=== PATIENT | female | born 1955 | race Caucasian/White ===

== ENCOUNTER → 2017-11-07 08:36 | Outpatient (CLI) | payer OTHER, SELFPAY ==
--- NOTE | 2017-11-07 08:41 | DI.MG.S_ITS ---
BILATERAL DIGITAL SCREENING MAMMOGRAM 3D/2D WITH CAD: 11/07/2017 CLINICAL: Baseline exam. Routine screening. No prior exams were available for comparison. There are scattered fibroglandular elements in both breasts. Current study was also evaluated with a Computer Aided Detection (CAD) system. There is a focal asymmetry with calcifications in the left breast upper outer aspect middle depth. There is possible architectural distortion associated with the focal asymmetry on tomosynthesis images. There also is an asymmetry in the left breast middle depth inner region seen on the craniocaudal view only. No other significant masses, calcifications, or other findings are seen in either breast. IMPRESSION: INCOMPLETE: NEEDS ADDITIONAL IMAGING EVALUATION The focal asymmetry in the left breast upper outer aspect middle depth is indeterminate. Additional views with possible ultrasound are recommended. The asymmetry in the left breast middle depth inner region seen on the craniocaudal view only is indeterminate. Additional views with possible ultrasound are recommended. This exam was interpreted at Station ID: [id number]. NOTE: For mammograms, a report in lay terms will be sent to the patient. Approximately 15% of breast malignancies will not be visualized mammographically. In the management of a palpable breast mass, a negative mammogram must not discourage biopsy of a clinically suspicious lesion. Electronically Signed By: Samir Ramires M.D. ecl/:11/07/2017 10:51:45 letter sent: Additional Imaging Needed ACR BI-RADS Category 0: Incomplete 3340F
== END ==
PROVIDERS: Visit Provider Nurse Practitioner Family
DX: Z12.31 Encounter for screening mammogram for malignant neoplasm of breast (principal)
CPT/HCPCS: 77063; 77067

== ENCOUNTER → 2017-12-05 14:02 | Outpatient (CLI) | payer OTHER, SELFPAY ==
--- NOTE | 2017-12-05 | DI.MG.S_ITS ---
UNILATERAL LEFT DIGITAL DIAGNOSTIC MAMMOGRAM 3D/2D WITH ADDITIONAL VIEWS: 12/05/2017 CLINICAL: Additional evaluation requested from prior study. Comparison is made to exam dated: 11/07/2017 mammogram - [facility]. There are scattered fibroglandular elements in the left breast. There is a 1.1 cm x 1 cm x 1.4 cm oval mass with an indistinct margin and calcifications in the left breast upper outer aspect middle depth. No other significant masses or calcifications are seen in the breast. There are mole markers overlying the left breast. IMPRESSION: INCOMPLETE: NEEDS ADDITIONAL IMAGING EVALUATION The 1.1 cm x 1 cm x 1.4 cm oval mass in the left breast is indeterminate. An ultrasound is recommended. This exam was interpreted at Station ID: [id number]. NOTE: For mammograms, a report in lay terms will be sent to the patient. Approximately 15% of breast malignancies will not be visualized mammographically. In the management of a palpable breast mass, a negative mammogram must not discourage biopsy of a clinically suspicious lesion. Electronically Signed By: Samir Ramires M.D. ecl/:12/06/2017 04:45:08 letter sent: Additional Imaging Needed ACR BI-RADS Category 0: Incomplete 3340F
--- NOTE | 2017-12-05 | DI.US.S_ITS ---
ULTRASOUND OF LEFT BREAST: 12/05/2017 CLINICAL: Patient returns for additional imaging over a suspected mass in the left breast. Comparison is made to exams dated: 12/05/2017 mammogram and 11/07/2017 mammogram - [facility]. Real-time and Doppler ultrasound of the left breast were performed. Rosario scale images of the real-time examination were reviewed. There is a 1.3 cm x 0.9 cm x 1.1 cm oval mass with an indistinct margin in the left breast at 1 o'clock middle depth 4 cm from the nipple. This oval mass is hypoechoic. Color flow imaging demonstrates that there is no vascularity present. This correlates with the finding seen on mammography. Left axillary ultrasound demonstrates an abnormal 1.4 cm left axillary lymph node with focal cortical thickening up to 5 mm. IMPRESSION: SUSPICIOUS OF MALIGNANCY - FOLLOW-UP RECOMMENDED 1) The 1.3 cm x 0.9 cm x 1.1 cm oval mass in the left breast is at a low suspicion for malignancy. An ultrasound guided biopsy is recommended. 2) Abnormal 1.4 cm left axillary lymph node with focal cortical thickening up to 5 mm. An ultrasound guided biopsy is recommended. These findings and recommendations were discussed with the patient at the time of the exam by [facility] Radiologist Dr. Bret Freedman in person. This exam was interpreted at Station ID: [id number]. Electronically Signed By: Samir Ramires M.D. ecl/:12/06/2017 04:49:04 letter sent: Biopsy Required Ultrasound BI-RADS: 4a Suspicious abnormality - low suspicion for malignancy
== END ==
PROVIDERS: Visit Provider Nurse Practitioner Family
DX: R92.8 Other abnormal and inconclusive findings on diagnostic imaging of breast (principal); N63.21 Unspecified lump in the left breast, upper outer quadrant; R59.0 Localized enlarged lymph nodes
CPT/HCPCS: 76642; 77065; G0279

== ENCOUNTER → 2018-01-02 12:37 | Outpatient (CLI) | payer OTHER, SELFPAY ==
--- NOTE | 2018-01-02 | DI.US.S_ITS ---
ULTRASOUND OF LEFT BREAST AND AXILLA: 01/02/2018 CLINICAL: Patient returns for additional imaging over a suspected mass in the left breast. BIOPSY CANCELLED PATIENT TO RETURN FOR 6 MONTH FOLLOW UP ULTASOUND. Comparison is made to exams dated: 12/05/2017 ultrasound, 12/05/2017 mammogram, and 11/07/2017 mammogram - [facility]. Color flow and real-time ultrasound of the left breast axilla were performed on the areas of interest. Rosario scale images of the real-time examination were reviewed. There is a possible 8 mm x 7 mm x 6 mm irregular area of fibroglandular tissue with an indistinct margin in the left breast at 2 o'clock middle depth 4 cm from the nipple. This irregular area of fibroglandular tissue is hypoechoic. This abnormality is decreased in size and less prominent since the prior study. Color flow imaging demonstrates that there is no vascularity present. No abnormalities were seen sonographically in the left axilla. A previous enlarged lymph node is now normal in size. IMPRESSION: PROBABLY BENIGN The possible 8 mm x 7 mm x 6 mm irregular area of fibroglandular tissue in the left breast is probably benign. A planned biopsy was cancelled. A follow-up ultrasound in 6 months is recommended. Originally a follow-up ultrasound in 3 months was recommended however the patient will not be able to [place]frame [place] A 6 month followup, given the decreasing size and less conspicuous appearance in the last month, is reasonable. I personally discussed this with the patient at the time of exam and she understands the importance of a follow up examination in 6 months. This exam was interpreted at Station ID: [id number]. Electronically Signed By: Mark loyola/:01/02/2018 16:26:51 letter sent: Followup Recommended Ultrasound BI-RADS: 3 Probably benign
== END ==
PROVIDERS: Visit Provider Nurse Practitioner Family
DX: N63.20 Unspecified lump in the left breast, unspecified quadrant (principal)
CPT/HCPCS: 76642

== ENCOUNTER → 2018-07-03 10:12 | Outpatient (CLI) | payer OTHER, SELFPAY ==
--- NOTE | 2018-07-03 | DI.US.S_ITS ---
ULTRASOUND OF LEFT BREAST AND AXILLA: 07/03/2018 CLINICAL: 6 month follow-up of complicated cyst. Comparison is made to exams dated: 01/02/2018 ultrasound, 12/05/2017 ultrasound, 12/05/2017 mammogram, and 11/07/2017 mammogram - [facility]. Color flow and real-time ultrasound of the left breast and axilla were performed. Rosario scale images of the real-time examination were reviewed. There is 1.8 cm x 0.8 cm x 0.5 cm irregular mass with an angular margin in the left breast at 1 o'clock middle depth 4 cm from the nipple. This irregular mass is hypoechoic. This abnormality has increased in size with increased solid appearance, and represents a change. Color flow imaging demonstrates that there is an adjacent vascularity. No abnormalities were seen sonographically in the left axilla. IMPRESSION: SUSPICIOUS OF MALIGNANCY The 1.8 cm x 0.8 cm x 0.5 cm irregular mass in the left breast is suspicious of malignancy. An ultrasound guided biopsy is recommended. Findings and recommendations were discussed with the patient by Dr. Guerra. This exam was interpreted at Station ID: [id number]. Electronically Signed By: Noe Centeno M.D. aty/:07/03/2018 11:09:26 letter sent: Biopsy Required Ultrasound BI-RADS: 4 Suspicious abnormality
== END ==
PROVIDERS: Visit Provider Nurse Practitioner Family
DX: R92.8 Other abnormal and inconclusive findings on diagnostic imaging of breast (principal); N63.21 Unspecified lump in the left breast, upper outer quadrant
CPT/HCPCS: 76642

== ENCOUNTER → 2018-07-10 09:03 | Outpatient (CLI) | payer OTHER, SELFPAY ==
--- NOTE | 2018-07-10 | DI.US.S_ITS ---
ULTRASOUND GUIDED BIOPSY LEFT BREAST USING VACUUM DEVICE WITH MARKING DEVICE INSERTED AND POST MAMMOGRAPHIC IMAGIN07/10/2018 CLINICAL: Left breast mass. PATIENT CONSENT: Risks (minor bleeding, infection, vasovagal reaction and repeat procedure), benefits and alternatives were explained to the patient and written informed consent was obtained. Correlation is made to exams dated: 07/03/2018 ultrasound, 01/02/2018 ultrasound, 12/05/2017 ultrasound, 12/05/2017 mammogram, and 11/07/2017 mammogram - [facility]. An ultrasound guided biopsy using real-time ultrasound was performed for the concerning 0.5 cm x 1.2 cm x 7 cm circumscribed oval mass located in the left breast at 1 o'clock middle depth. This was described on the previous ultrasound report. The skin was prepped in the usual manner. Local anesthetic was administered to the access site. A skin pat was made in the breast. The abnormality was approached from the lateral aspect. A 13 gauge biopsy needle was placed adjacent to the abnormality under ultrasound guidance. Once the needle was documented to be in the correct location, four specimens were obtained using the Mammotome biopsy system. The patient received additional local anesthetic during the procedure. A Vision marker clip was inserted into the biopsy cavity. A skin closure strip and a sterile dressing were applied to the access site. Post procedure mammographic imaging demonstrates the location device at the targeted area and partial removal of the abnormality. The specimens were sent to the laboratory for pathological analysis. IMPRESSION: ULTRASOUND GUIDED BIOPSY BENIGN Ultrasound guided biopsy of the 0.5 cm x 1.2 cm x 7 cm mass in the left breast at 1 o'clock middle depth was successful. Pathology indicates benign sclerosing adenosis (SA) with micro-calcifications and no atypia present. Pathology results are concordant with imaging findings. Return to annual mammogram screening schedule is recommended. This exam was interpreted at Station ID: [id number]. Enrique Centeno M.D. [facility],aty/:07/16/2018 19:00:40
--- NOTE | 2018-07-10 | PATH_ITS ---
[facility] Accession Number: [id number] . 01 Material submitted: . breast - LEFT BREAST MASS . 01 Clinical history: . A: LEFT BREAST MASS 1:00 4CM FN . 02 Diagnosis: Needle Core Biopsies, Left Breast, 1 o'clock, 4 cm from the Nipple: Benign breast tissue with microcalcifications present within breast stroma, benign lobules, and areas of sclerosing adenosis. Negative for malignancy and significant atypia. MRV/07/11/2018 . 02 Electronically signed: . Clay Escamilla MD, Pathologist NPI- [id number] . 01 Gross description: . Received one formalin-filled container labeled with the patient's name and designated left breast mass 1 o'clock 4 cm FN. The specimen is received with a plastic filter, sample loose in container and consists of four 0.3 cm in diameter, yellow, cylindrical-shaped portions of tissue which range in length from 0.8 cm to 1.8 cm. The specimen is filtered and entirely submitted in one cassette. Collection date: 07/10/2018. Collection time per container: 9:51. Total fixation time: 12 hours, up to 24. (DC:[id number]) /FRR . 02 Pathologist provided ICD-10: N60.82 . 02 CPT . 368087 Performed at: 01 [facility] [address] [id number] MD Jayy Aguayo MD Phone: [phone] Performed at: 02 [facility] [address] [place], [place] [id number] MD Rukhsana Henry MD Phone: [phone]
--- NOTE | 2018-07-10 | DI.MG.S_ITS ---
UNILATERAL LEFT DIGITAL DIAGNOSTIC MAMMOGRAM: 07/10/2018 CLINICAL: Post left breast ultrasound biopsy clip placement imaging. Comparison is made to exams dated: 12/05/2017 mammogram and 11/07/2017 mammogram - [facility]. There are scattered fibroglandular elements in left breast. There is a marker clip in the appropriate position in the left breast at 1 o'clock middle depth. This correlates with the biopsy performed under US guidance earlier today. IMPRESSION: POST PROCEDURE MAMMOGRAM FOR MARKER PLACEMENT There was a successful marker clip placement in the left breast middle depth. This exam was interpreted at Station ID: [id number]. NOTE: For mammograms, a report in lay terms will be sent to the patient. Approximately 15% of breast malignancies will not be visualized mammographically. In the management of a palpable breast mass, a negative mammogram must not discourage biopsy of a clinically suspicious lesion. Electronically Signed By: Enrique Guerra M.D. sdh/:07/12/2018 10:59:24 ACR BI-RADS Category Post-procedure mammogram for marker placement
== END ==
PROVIDERS: Visit Provider Nurse Practitioner Family
DX: N60.22 Fibroadenosis of left breast (principal)
CPT/HCPCS: 19083; 77065

== ENCOUNTER → 2020-08-04 10:43 | Outpatient (CLI) | payer OTHER, SELFPAY ==
--- NOTE | 2020-08-04 | DI.MG.S_ITS ---
BILATERAL DIGITAL SCREENING MAMMOGRAM 3D/2D WITH CAD: 08/04/2020 CLINICAL: Routine screening. Comparison is made to exams dated: 12/05/2017 mammogram, 07/10/2018 mammogram, and 11/07/2017 mammogram - [facility]. There are scattered fibroglandular elements in both breasts. Current study was also evaluated with a Computer Aided Detection (CAD) system. There is a new 0.7 cm irregular focal asymmetry with an indistinct margin in the left breast central to the nipple posterior depth. No other significant masses, calcifications, or other findings are seen in either breast. IMPRESSION: INCOMPLETE: NEEDS ADDITIONAL IMAGING EVALUATION The new 0.7 cm irregular focal asymmetry in the left breast is indeterminate. Additional views with possible ultrasound are recommended. This exam was interpreted at Station ID: [id number]. NOTE: For mammograms, a report in lay terms will be sent to the patient. Approximately 15% of breast malignancies will not be visualized mammographically. In the management of a palpable breast mass, a negative mammogram must not discourage biopsy of a clinically suspicious lesion. Electronically Signed By: Israel Martin acr/:08/04/2020 14:04:22 letter sent: Additional Imaging Needed ACR BI-RADS Category 0: Incomplete 3340F
== END ==
PROVIDERS: PCP Nurse Practitioner Family; Referring Provider Nurse Practitioner Family; Visit Provider Nurse Practitioner Family
DX: Z12.31 Encounter for screening mammogram for malignant neoplasm of breast (principal)
CPT/HCPCS: 77063; 77067

== ENCOUNTER → 2020-08-17 12:33 | Outpatient (CLI) | payer OTHER, SELFPAY ==
--- NOTE | 2020-08-17 | DI.US.S_ITS ---
LIMITED ULTRASOUND OF LEFT BREAST AND AXILLA: 08/17/2020 CLINICAL: Patient returns today to evaluate a focal asymmetry in the left breast. Comparison is made to exams dated: 08/17/2020 mammogram, 08/04/2020 mammogram, 07/10/2018 ultrasound biopsy, 07/10/2018 mammogram, 07/03/2018 ultrasound, and 01/02/2018 [facility]. Color flow and real-time ultrasound of the left breast 6 o'clock, and axilla regions were performed on the areas of interest. There is a 0.7 cm x 0.5 cm x 0.5 cm oval mass with an indistinct margin in the left breast at 6 o'clock posterior depth. This oval mass is hypoechoic. This correlates with mammography findings. Color flow imaging demonstrates that there is an adjacent vascularity. No suspicious enlarged lymph nodes were seen sonographically in the left axilla. IMPRESSION: HIGHLY SUGGESTIVE OF MALIGNANCY The 0.7 cm x 0.5 cm x 0.5 cm oval mass in the left breast is highly suggestive of malignancy. An ultrasound guided biopsy is recommended. The findings were discussed with the patient at the conclusion of the study by Dr. Obrien. This exam was interpreted at Station ID: [id number]. Electronically Signed By: Jayy zamarripa/:08/17/2020 15:47:22 letter sent: Biopsy Required Ultrasound BI-RADS: 5 Highly suggestive of malignancy
--- NOTE | 2020-08-17 | DI.MG.S_ITS ---
UNILATERAL LEFT DIGITAL DIAGNOSTIC MAMMOGRAM 3D/2D WITH ADDITIONAL VIEWS: 08/17/2020 CLINICAL: Additional evaluation requested from prior study. Comparison is made to exams dated: 08/04/2020 mammogram, 07/03/2018 ultrasound, 12/05/2017 mammogram, and 11/07/2017 mammogram - [facility]. There are scattered fibroglandular elements in left breast. There is a 0.7 cm oval equal density mass with a spiculated and circumscribed margin in the left breast at 6 o'clock posterior depth. No other significant masses or calcifications are seen in the breast. IMPRESSION: INCOMPLETE: NEEDS ADDITIONAL IMAGING EVALUATION The 0.7 cm oval equal density mass in the left breast is indeterminate. An ultrasound is recommended. Ultrasound will be performed immediately following the current exam. This exam was interpreted at Station ID: [id number]. NOTE: For mammograms, a report in lay terms will be sent to the patient. Approximately 15% of breast malignancies will not be visualized mammographically. In the management of a palpable breast mass, a negative mammogram must not discourage biopsy of a clinically suspicious lesion. Electronically Signed By: Jayy Stanley M.D. ddsha/:08/17/2020 13:27:37 ACR BI-RADS Category 0: Incomplete 3340F
== END ==
PROVIDERS: PCP Nurse Practitioner Family; Referring Provider Nurse Practitioner Family; Visit Provider Nurse Practitioner Family
DX: R92.8 Other abnormal and inconclusive findings on diagnostic imaging of breast (principal); N63.24 Unspecified lump in the left breast, lower inner quadrant
CPT/HCPCS: 76642; 77065; G0279

== ENCOUNTER → 2020-08-30 09:07 | Outpatient (CLI) | payer OTHER, SELFPAY ==
--- NOTE | 2020-08-30 | PATH_ITS ---
[facility] Accession Number: [id number] . 01 Material submitted: . breast - LEFT BREAST MASS 6:00 3CM FN . 01 Clinical history: . INCONCLUSIVE FINDINGS ON DIAG IMAGING (LEFT BREAST) . 02 Diagnosis: Left Breast, Mass 6 o'clock, 3 cm FN, Core Needle Biopsies: Invasive lobular carcinoma with the following features: Size/Extent: 6 mm in greatest linear extent, involving five of multiple core fragments. Histologic grade: Glandular/tubular differentiation: Score 3. Nuclear pleomorphism: Score 2. Mitotic rate: Score 1. Overall grade: Grade 2. Ductal carcioma in situ: Not identified. Lobular carcinoma in situ: Present. Lymphovascular invasion: Not identified. Microcalcifications: Not identified. Ancillary studies: Estrogen receptor: Strongly positive, 100%. Progesterone receptor: Moderately positive, 90%. HER2 by IHC: Negative (Score 1+). Please see comment. [facility] 09/02/2020 1717 Local . 02 Comment: As part of routine air quality engineer, Dr. Scales also reviewed this case and agrees with the diagnosis. Dr. Henry gave preliminary result of invasive mammary carcinoma to Pretty in Dr. Anthony's office on 09/01/2020. . 02 Electronically signed: . Rukhsana Henry MD, Pathologist NPI- [id number] . 01 Gross description: . Received one formalin-filled container, labeled with the patient's name and designated left breast mass 6 o'clock 3 cm FN. The specimen is received with a plastic filter in container, sample loose in container and consists of multiple yellow-cade portions of tissue which range in size from less than 0.1 cm to 1.1 x 0.3 x 0.3 cm. The specimen is filtered and entirely submitted in one cassette. Possible collection date and time: 08/30/20 at 10:21. Total fixation time: Approximately 14 hours. (DC:cmc88 [id number]) /OTIS 08/31/2020 0220 Local . 02 Microscopic: . Immunohistochemical stains were performed to characterize cells of interest. All control stains showed appropriate reactivity. . RESULTS: E-cadherin: Negative. Estrogen receptor (SP1): Strongly positive, 100% of cells. Progesterone receptor (1E2): Moderately positive, 90% of cells. HER2 (4B5): Negative (score 1+). . Cold ischemia and fixation times: Meets requirements in the latest version of the ASCO/CAP guidelines. Testing performed on Block Number: A1. . TECHNICAL NOTE: The scoring criteria for breast biomarkers by immunohistochemistry is based on the current ASCO/CAP guidelines (Emy et al, Arch Pathol Lab Med 2010: 134(6): 907-922 / Ramón Dugan al, Arch Pathol Lab Med 2014: 138(2):241-256). Deparaffinized sections of formalin fixed tissue (along with appropriate positive controls) are incubated with the above antibody(s). Using the automated Quinter stainer, tissue is incubated with the designated antibody* which is then localized by a non-biotin, dual polymer detection system. The external controls are reviewed for appropriate reactivity and found to be adequate. Results on the target cell population are indicated above. These tests have not been validated on decalcified tissue. . 02 Pathologist provided ICD-10: C50.912 . 02 CPT . 642835, Y26622, 052373, 192799, 912556 Performed at: 01 [facility] [address] [address], [place], [place] [id number] MD Jayy Aguayo MD Phone: [phone] Performed at: 02 [facility] [address] [place], [place] [id number] MD Rukhsana Henry MD Phone: [phone]
--- NOTE | 2020-08-30 | DI.MG.S_ITS ---
UNILATERAL LEFT DIGITAL DIAGNOSTIC MAMMOGRAM 3D/2D POST-NEEDLE BIOPSY WITH AUGMENTATION: 08/30/2020 CLINICAL: Post clip placement. Comparison is made to exams dated: 08/17/2020 mammogram, 08/04/2020 mammogram, and 07/10/2018 mammogram - [facility]. There are scattered fibroglandular elements in left breast. There is a marker clip in the appropriate position in the left breast at 6 o'clock posterior depth. This marker clip placement is at the biopsy site. IMPRESSION: POST PROCEDURE MAMMOGRAM FOR MARKER PLACEMENT There was a successful marker clip placement in the left breast posterior depth. This exam was interpreted at Station ID: [id number]. NOTE: For mammograms, a report in lay terms will be sent to the patient. Approximately 15% of breast malignancies will not be visualized mammographically. In the management of a palpable breast mass, a negative mammogram must not discourage biopsy of a clinically suspicious lesion. Electronically Signed By: Mark loyola/:09/08/2020 14:00:54 ACR BI-RADS Category Post-procedure mammogram for marker placement
--- NOTE | 2020-08-30 09:08 | DI.US.S_ITS ---
ULTRASOUND GUIDED BIOPSY LEFT BREAST USING VACUUM DEVICE WITH MARKING DEVICE INSERTED: 08/30/2020 CLINICAL: Left breast mass. PATIENT CONSENT: Risks (minor bleeding, infection, vasovagal reaction and repeat procedure), benefits and alternatives were explained to the patient and written informed consent was obtained. Correlation is made to exams dated: 08/17/2020 ultrasound, 08/17/2020 mammogram, 08/04/2020 mammogram, 07/10/2018 ultrasound biopsy, 07/10/2018 mammogram, and 07/03/2018 [facility]. An ultrasound guided biopsy using real-time ultrasound was performed for the irregular shaped mass located in the left breast at 6 o'clock middle depth. The skin was prepped in the usual manner. Local anesthetic was administered to the access site. A small incision was made in the breast. The abnormality was approached from the lateral aspect. A biopsy needle was placed adjacent to the abnormality under ultrasound guidance. Once the needle was documented to be in the correct location, eight specimens were obtained using the Mammotome biopsy system. A clip was inserted into the biopsy cavity. The specimens were sent to the laboratory for pathological analysis. IMPRESSION: ULTRASOUND GUIDED BIOPSY MALIGNANT Ultrasound guided biopsy of the mass in the left breast at 6 o'clock middle depth was successful. Pathology indicates malignant invasive lobular carcinoma ([place]). Pathology results are concordant with imaging findings. A surgical/oncologic consultation is recommended. Results and recommendations will be communicated to the ordering provider's office. This exam was interpreted at Station ID: [id number]. Mark loyola,taurus/:09/06/2020 09:36:47
== END ==
PROVIDERS: PCP Nurse Practitioner Family; Referring Provider Nurse Practitioner Family; Visit Provider Nurse Practitioner Family
DX: C50.812 Malignant neoplasm of overlapping sites of left female breast (principal); Z17.0 Estrogen receptor positive status [ER+]
CPT/HCPCS: 19083; 77065

== ENCOUNTER → 2020-10-14 07:39 | Outpatient (CLI) | payer OTHER, SELFPAY ==
--- NOTE | 2020-10-14 | DI.MRI.S_ITS ---
BREAST MRI OF BOTH BREASTS- WITH CAD: 10/14/2020 CLINICAL: Left breast cancer. Comparison is made to exams dated: 08/30/2020 ultrasound biopsy, 08/30/2020 mammogram, and 08/17/2020 mammogram - [facility]. Interpretation of this MRI was correlated with available mammograms and ultrasounds. Informed consent was obtained from the patient. 20 cc of ProHance (Gadoteridol) nonionic contrast was injected. Axial T1, T2, sagittal T1, and pre and post contrast T1 images were obtained with a dedicated breast coil. Post processing was performed including computer aided calculations of any tumor volumes and dimensions. There is moderate background parenchymal enhancement. Right breast: No discrete mass or suspicious enhancement identified within the right breast to suggest malignancy. Evaluation is limited by moderate background parenchymal enhancement. Left breast: At the 5:30-6 o'clock position of the inferior left breast at posterior 3rd depth, there is an enhancing mass with slightly spiculated margins measuring approximately 1.6 x 0.6 x 0.9 cm. There is an associated focus of magnetic susceptibility artifact within the mass corresponding to the previously placed marker clip. Kinetic enhancement curves demonstrate moderate to rapid initial enhancement with washout. No evidence of chest wall or skin extension. Also within the left breast, no definite additional discrete mass or suspicious enhancement identified to suggest additional foci of disease. Evaluation is limited by moderate background parenchymal enhancement but these foci demonstrate benign appearing kinetic enhancement curves. Miscellaneous: No axillary or internal mammary lymphadenopathy by size criteria. IMPRESSION: KNOWN BIOPSY PROVEN MALIGNANCY 1. Posterior left breast mass demonstrated corresponding to the patient's biopsy-proven invasive lobular carcinoma. No evidence of chest wall or skin extension. 2. No definite additional foci of disease demonstrated within the left breast or in the contralateral right breast. 3. No axillary or internal mammary lymphadenopathy by size criteria. This exam was interpreted at Station ID: [id number]. Electronically Signed By: Jayy Stanley M.D. ddp/:10/14/2020 10:41:53 ACR BI-RADS Category 6: Known biopsy proven malignancy [id number]
--- NOTE | 2020-12-28 14:26 | PC.NURSE ---
pt called from [facility] about lumpectomy results done 3 weeks ago. Procedure done at [facility]. Pt has appt with Dr. Jarvis 01/13/21. Pt will call back 12/30/20 about results. Pt will need to keep appt with Dr. Jarvis and talk to him about the results.
== END ==
PROVIDERS: PCP Family Medicine; Referring Provider Family Medicine; Visit Provider Family Medicine
DX: C50.512 Malignant neoplasm of lower-outer quadrant of left female breast (principal)
CPT/HCPCS: 77049

== ENCOUNTER → 2021-03-10 14:10 | Outpatient (CLI) | payer OTHER, SELFPAY | PROVIDERS: PCP Family Medicine; Referring Provider Internal Medicine Hematology & Oncology; Visit Provider Internal Medicine Hematology & Oncology | DX: C50.912 Malignant neoplasm of unspecified site of left female breast (principal); M85.852 Other specified disorders of bone density and structure, left thigh; Z78.0 Asymptomatic menopausal state; Z72.0 Tobacco use; Z79.811 Long term (current) use of aromatase inhibitors | CPT/HCPCS: 77080; 77081 ==

== ENCOUNTER → 2022-03-16 15:42 | Outpatient (CLI) | payer OTHER, SELFPAY ==
--- NOTE | 2022-03-16 15:42 | DI.US.S_ITS ---
PROCEDURE: US ABDOMEN COMPLETE INDICATIONS: Breast cancer, LFT TECHNIQUE: Real-time scanning was performed of the abdominal and retroperitoneal organs, with image documentation. COMPARISON: None. FINDINGS: Liver: The liver demonstrates normal size. The liver demonstrates generalized moderately increased echogenicity. This decreases ultrasound sensitivity for detection of hepatic masses. Within the left lobe of the liver, there is a mildly complex cyst seen that measures 6.2 x 4.7 x 4.5 cm. Likely fatty sparing can be seen adjacent to the gallbladder. Gallbladder: No findings of gallstones or sludge are seen. The gallbladder wall is not thickened, measuring 3 mm or less. No specific pericholecystic fluid is seen. The sonographic Monaco sign is negative. Biliary ducts: Intrahepatic bile ducts are non-dilated. Extrahepatic bile duct caliber measures 4 mm. Normal is 6-7 mm or less in diameter, or 10 mm or less post-cholecystectomy. Pancreas: Visualized portions of the pancreas are sonographically normal. Spleen: Spleen is normal in size and homogeneous in echotexture. Kidneys: Kidneys are normal in size and echotexture. Right kidney measures 11.1 cm long; left kidney measures 22 10.9 cm long. No hydronephrosis or nephrolithiasis. There is a solid echogenic, nonshadowing mass without abnormal vascularity seen involving the cortex of the right mid kidney anteriorly, that measures up to 7 mm. Aorta: Visualized aorta is normal in caliber at less than 3 cm. Iliacs: Proximal common iliac arteries are normal in caliber at less than 2.5 cm. IVC: Not seen, obscured by overlying bowel gas. Miscellaneous: No free abdominal fluid. IMPRESSION: No dean liver masses are seen. There is a complex cyst seen involving the left liver that measures up to 6.2 cm. The liver demonstrates increased echogenicity. This finding is nonspecific, yet it is most commonly attributed to fatty infiltration. If there is strong clinical concern for liver metastases, please consider a follow-up liver protocol CT or MRI for further evaluation. 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 Dictated by: Bret Freedman M.D. on 03/16/2022 at 18:09 Approved by: Bret Freedman M.D. on 03/16/2022 at 18:11
== END ==
PROVIDERS: PCP Family Medicine; Referring Provider Internal Medicine Hematology & Oncology; Visit Provider Internal Medicine Hematology & Oncology
DX: C50.912 Malignant neoplasm of unspecified site of left female breast (principal); R94.5 Abnormal results of liver function studies; K76.89 Other specified diseases of liver; N28.9 Disorder of kidney and ureter, unspecified
CPT/HCPCS: 76700

== ENCOUNTER → 2022-04-11 11:44 | Outpatient (CLI) | payer OTHER, SELFPAY ==
--- NOTE | 2022-04-11 11:46 | DI.CT.S_ITS ---
PROCEDURE: CT ABDOMEN LIVER PROTOCOL INDICATIONS: breast cancer, transamnitis TECHNIQUE: 4 phase scanning was performed. Non-contrast 5 mm axial sections acquired from the diaphragm to the iliac crests. Following the administration of intravenous contrast, 5 mm thick arterial-phase, portal venous-phase, and 5-minute delayed phase images were acquired through the liver. 5 mm thick coronal and sagittal reformats were performed. For radiation dose reduction, the following was used: automated exposure control, adjustment of mA and/or kV according to patient size. COMPARISON: [facility], , US ABDOMEN COMPLETE, 03/16/2022, 15:58. FINDINGS: Image quality: Good Lower chest: Unremarkable Solid organs: Left hepatic cyst. Hepatic steatosis. No hypervascular liver lesions identified. Gallbladder is under distended. No pathologic biliary ductal dilation or pancreatic ductal dilation. There is a large duodenal diverticulum adjacent to the ampulla. No splenomegaly. No adrenal nodules. Subcentimeter lesions are too small to characterize. No hydronephrosis. Possible fat rich AML versus scarring along the cortex of the right kidney. Vessels and lymph nodes: Atherosclerotic calcifications without abdominal aortic aneurysm. The main portal vein is patent. No pathologic adenopathy by size criteria. Bowel and peritoneum: No bowel obstruction. No pathologic ascites. Partially seen clip along the right pericolic gutter. No significant inflammatory changes. Body wall: Unremarkable Bones: Scattered degenerative changes without acute osseous abnormality. A small sclerotic lesion is seen in the vertebral body of L2 measuring 8 mm. IMPRESSION: Hepatic steatosis. No hypervascular or definite metastatic liver lesion. The left lobe cyst is present. No definite active disease in the abdomen. A small indeterminate mildly sclerotic lesion is seen in the L2 vertebral body. In the setting of malignancy history, attention is suggested on follow-up imaging or bone scan. Dictated by: Dave Ray M.D. on 04/11/2022 at 13:34 Approved by: Dave Ray M.D. on 04/11/2022 at 13:40
== END ==
PROVIDERS: PCP Family Medicine; Referring Provider Internal Medicine Hematology & Oncology; Visit Provider Internal Medicine Hematology & Oncology
DX: C50.912 Malignant neoplasm of unspecified site of left female breast (principal); M89.9 Disorder of bone, unspecified; R74.01 Elevation of levels of liver transaminase levels; K76.89 Other specified diseases of liver; K76.0 Fatty (change of) liver, not elsewhere classified; K57.10 Diverticulosis of small intestine without perforation or abscess without bleeding; I70.0 Atherosclerosis of aorta
CPT/HCPCS: 74170; Q9967

== ENCOUNTER → 2022-07-18 09:22 | Outpatient (CLI) | payer MEDICARE, OTHER, SELFPAY ==
--- NOTE | 2022-07-18 09:23 | DI.NM.S_ITS ---
PROCEDURE: NM BONE SCAN WHOLE BODY RADIOPHARMACEUTICAL: 20.0 mCi Tc-99m MDP IV. INDICATIONS: breast cancer TECHNIQUE: Delayed whole-body scintigrams were obtained approximately 3-4 hours after intravenous injection of radiotracer. Anterior and posterior views were acquired from vertex to feet. Additional left and right oblique views of the thorax were obtained. COMPARISON: [facility], CT, CT ABDOMEN LIVER PROTOCOL, 04/11/2022, 11:53. FINDINGS: No lesions are identified in skull, sternum, clavicles, scapulae, ribs, bony pelvis, and visualized shafts of the long bones. There are foci of increased uptake in cervical, thoracic and lumbar spine most likely secondary to degenerative disc and facet disease; early metastasis to spine could be obscured by degenerative changes. There are foci of increased periarticular activity most pronounced in shoulders, wrists and left knee, compatible with degenerative/arthritic changes. IMPRESSION: 1. No definitive scintigraphic findings to suggest osseous metastatic disease. 2. Degenerative changes as described. Consider radiographic correlation. Dictated by: Patric Muniz M.D. on 07/18/2022 at 13:27 Approved by: Patric Muniz M.D. on 07/18/2022 at 13:31
== END ==
PROVIDERS: PCP Family Medicine; Referring Provider Internal Medicine Hematology & Oncology; Visit Provider Internal Medicine Hematology & Oncology
DX: C50.912 Malignant neoplasm of unspecified site of left female breast (principal)
CPT/HCPCS: 78306; A9503

== ENCOUNTER → 2023-06-26 08:38 | Outpatient (CLI) | payer MEDICARE, OTHER, SELFPAY ==
[2023-06-26 10:03] LABS: Add Manual Diff / Slide Review NO; Basophils Absolute Auto 100 /uL (0-100); Basophils Percent Auto 0.7 % (0-2); Eosinophils Absolute Auto 100 /uL (0-450); Eosinophils Percent Auto 1.4 % (2-4); Hematocrit 46.1 % (36-46); Lymphocytes Absolute Auto 1900 /uL (1100-4500); Lymphocytes Percent Auto 23.2 % (25-40); Mean Corpuscular HGB Conc 34.6 % (30-36); Mean Corpuscular Hemoglobin 34.8 PG (26-34); Mean Corpuscular Volume 100.6 fL (80-100); Monocytes Absolute Auto 500 /uL (0-900); Monocytes Percent Auto 6.1 % (3-14); Neutrophils Absolute Auto 5700 /uL (1500-7000); Neutrophils Percent Auto 68.6 % (50-75); Platelet Count 225 X10^3/uL (150-400); Red Blood Cell Count 4.58 X10^6/uL (4.0-5.2); Red Cell Distribution Width 12.8 % (11.6-14.8); White Blood Cell Count 8.3 X10^3/uL (4.5-11.0)
[2023-06-26 10:28] LABS: Alanine Aminotransferase 125 IU/L (<35); Albumin Globulin Ratio 1.3 (1.0-2.8); Alkaline Phosphatase 104 U/L (38-126); Aspartate Aminotransferase 65 IU/L (14-36); BUN Creatinine Ratio 14.5 (6-22); Bilirubin Total 0.9 mg/dL (0.2-1.3); Blood Urea Nitrogen 11 mg/dL (7-17); Calcium 9.4 mg/dL (8.4-10.2); Carbon Dioxide 27 mmol/L (22-32); Chloride 107 mmol/L (98-107); Estimated Glomerular Filt Rate > 60 mL/min (>60); Globulin 3.1 g/dL (1.7-4.1); Glucose 114 mg/dL (80-110); HEMOLYSIS < 15 (0-50); Sodium 137 mmol/L (137-145); Total Protein 7.1 g/dL (6.3-8.2)
== END ==
PROVIDERS: PCP Family Medicine; Referring Provider Internal Medicine Hematology & Oncology; Visit Provider Internal Medicine Hematology & Oncology
DX: C50.112 Malignant neoplasm of central portion of left female breast (principal); Z17.0 Estrogen receptor positive status [ER+]
CPT/HCPCS: 36415; 80053; 85025

== ENCOUNTER → 2023-12-26 07:37 | Outpatient (CLI) | payer MEDICARE, OTHER, SELFPAY ==
[2023-12-26 08:23] LABS: Estimated Glomerular Filt Rate > 60 mL/min (>60)
== END ==
PROVIDERS: PCP Family Medicine; Referring Provider Radiology Diagnostic Radiology; Visit Provider Radiology Diagnostic Radiology
DX: Z90.49 Acquired absence of other specified parts of digestive tract (principal)
CPT/HCPCS: 36415; 82565

== ENCOUNTER → 2023-12-27 08:54 | Outpatient (CLI) | payer MEDICARE, OTHER, SELFPAY ==
--- NOTE | 2023-12-27 | DI.CT.S_ITS ---
PROCEDURE: CT ABDOMEN PELVIS W CON INDICATIONS: Elevation of levels of liver transaminase levels TECHNIQUE: After the administration of intravenous contrast, axial sections acquired from the lung bases to the pubic symphysis. Coronal and sagittal reformats were performed. For radiation dose reduction, the following was used: automated exposure control, adjustment of mA and/or kV according to patient size. COMPARISON: None. FINDINGS: Image quality: Diagnostic. Lower Chest: No significant findings. ABDOMEN: Liver: No solid mass. Hepatic steatosis. Left hepatic cyst. Gallbladder: No radiopaque gallstones or wall thickening. Biliary ducts: No biliary dilation. Pancreas: No ductal dilation. Spleen: Size is within normal limits. Adrenal Glands: No adrenal nodules. Kidneys and Ureters: No hydronephrosis. No solid mass. No complex renal cystic lesion which requires follow up. Stomach and Bowel: Normal colonic caliber, without significant wall thickening. Large duodenal diverticulum adjacent to the ambulance. Status post appendectomy. Peritoneum: No abnormal intraperitoneal fluid. No free air. Ventral Wall: No significant ventral hernia. Abdominal Nodes: No retroperitoneal or mesenteric adenopathy by size criteria. Vessels: Aorta and inferior vena cava are normal in size. PELVIS: Pelvic Organs: Unremarkable. Bladder: No bladder wall thickening, accounting for underdistention. Pelvic Nodes: No enlarged lymph nodes. Miscellaneous: No inguinal hernias are seen. Bones: No aggressive osseous abnormality. Degenerative changes without acute vertebral body compression fracture. IMPRESSION: Hepatic steatosis. Left hepatic simple cyst. No evidence of distant metastatic disease in the abdomen or pelvis. Approved by: Sandra Torrez M.D.,Ph.D. on 12/28/2023 at 3:16
== END ==
PROVIDERS: PCP Family Medicine; Referring Provider Internal Medicine Hematology & Oncology; Visit Provider Internal Medicine Hematology & Oncology
DX: K76.89 Other specified diseases of liver (principal); K76.0 Fatty (change of) liver, not elsewhere classified; R74.01 Elevation of levels of liver transaminase levels
CPT/HCPCS: 74177; Q9967

== ENCOUNTER → 2024-06-30 09:34 | Outpatient (CLI) | payer MEDICARE, OTHER, SELFPAY ==
--- NOTE | 2024-06-30 09:36 | DI.RAD.S_ITS ---
PROCEDURE: XR DEXA AXIAL SKELETON INDICATIONS: SCREENING FOR OSTEOPOROSIS COMPARISON: [facility], [facility]Z, XR DEXA AXIAL SKELETON, 03/10/2021, 14:45. FINDINGS: Lumbar Spine: L1-L4. Bone mineral density 1.073 g/cm2, T score 0.2. Left Femoral Neck: Bone mineral density 0.641 g/cm2, T score -1.9. Left Hip: Bone mineral density 0.821 g/cm2, T score -1.0. Fracture Risk Calculation (when applicable): 10-year fracture risk of a major osteoporotic fracture 11 percent and of a hip fracture 1.6 percent. (T score greater or equal to -1.0 to: NORMAL) (T score from -1.1 to -2.4: OSTEOPENIA) (T score less than or equal to -2.5: OSTEOPOROSIS) IMPRESSION: Osteopenia. Follow-up guidelines as follows: Osteoporosis: Consider a repeat DEXA and Vertebral Fracture Assessment (VFA) exam in 2 years or sooner if medically necessary, to reassess this patient's status. Osteopenia: Consider a repeat DEXA in 2-3 years to reassess this patient's status, or if there is a new clinical indication. Normal: Consider a repeat DEXA in 5 years or sooner, or if there is a new clinical indication. All treatment decisions require clinical judgment and consideration of individual patient factors, including patient preferences, comorbidities, previous drug use, risk factors not captured in the FRAX model (e.g., frailty, falls, vitamin D deficiency, increased bone turnover, interval significant decline in bone density ) and possible under- or over-estimation of fracture risk by FRAX. In addition, the NOF Guide recommends that FDA-approved medical therapies be considered in postmenopausal women and men age >= 50 years with a: * Hip or vertebral (clinical or morphometric) fracture * T-score of <=-2.5 at the spine or hip * Ten-year fracture probability by FRAX of >= 3% for hip fracture or >=20% for major osteoporotic fracture. Dictated by: Sherif Villagran M.D. on 06/30/2024 at 13:50 Approved by: Sherif Villagran M.D. on 06/30/2024 at 13:52
== END ==
PROVIDERS: PCP Family Medicine; Referring Provider Internal Medicine Hematology & Oncology; Visit Provider Internal Medicine Hematology & Oncology
DX: Z79.811 Long term (current) use of aromatase inhibitors (principal); C50.112 Malignant neoplasm of central portion of left female breast; M85.852 Other specified disorders of bone density and structure, left thigh; R74.01 Elevation of levels of liver transaminase levels; Z17.0 Estrogen receptor positive status [ER+]
CPT/HCPCS: 77080